=== PATIENT | male | born 1945 | race Caucasian/White ===

== ENCOUNTER 2018-03-03 08:07 | Inpatient (IN) ==
--- NOTE | 2018-03-03 07:37 | Discharge Summary ---
<Gareth Blount - Last Filed: 03/03/18 08:41> Orders not resulted at time of discharge: Pending orders 03/03/18 07:35 XR shoulder complete LT [XR] Routine H/H [Hemoglobin and Hematocrit] [HEME] Routine - Discharge Diagnosis (1) Lumbar spondylosis Priority: Secondary Status: Chronic Qualifiers: Spinal osteoarthritis complication: without myelopathy or radiculopathy Qualified Code(s): M47.816 - Spondylosis without myelopathy or radiculopathy, lumbar region (2) Rotator cuff arthropathy of left shoulder Priority: Primary Status: Chronic (3) Status post reverse total arthroplasty of left shoulder Priority: Primary Status: Acute (4) BPH (benign prostatic hyperplasia) Priority: Secondary Status: Chronic Qualifiers: Lower urinary tract symptom presence: unspecified whether lower urinary tract symptoms present Qualified Code(s): N40.0 - Benign prostatic hyperplasia without lower urinary tract symptoms (5) GERD (gastroesophageal reflux disease) Priority: Secondary Status: Chronic Qualifiers: Esophagitis presence: without esophagitis Qualified Code(s): K21.9 - Gastro-esophageal reflux disease without esophagitis (6) HTN (hypertension) Priority: Secondary Status: Chronic Qualifiers: Hypertension type: essential hypertension Qualified Code(s): I10 - Essential (primary) hypertension (7) Thyroid disease Priority: Secondary Status: Chronic - Hospital Course Hospital course: Mr. Poole is a 72 year old male - Time Spent with Patient Total time spent providing and/or coordinating discharge services: - Discharge Medications Home Medications: Labetalol HCl 400 mg PO BID 01/24/17 [History] Lisinopril [Zestril] 20 mg PO HS 01/24/17 [History] Pantoprazole Sodium 80 mg PO DAILY 01/24/17 [History] Potassium Chloride [K-Tab ER] 40 mg PO DAILY 01/24/17 [History] Tamsulosin [Flomax] 0.4 mg PO HS 01/24/17 [History] amLODIPine [Norvasc] 5 mg PO DAILY 01/24/17 [History] Fluticasone Propionate Nasal [Flonase] 2 spr NS DAILY PRN 03/03/18 [History] Gabapentin [Neurontin] 600 - 900 mg PO HS 03/03/18 [History] Montelukast [Singulair] 10 mg PO HS 03/03/18 [History] OxyCODONE Immed Rel [Roxicodone 5 MG] 5 mg PO Q6HR PRN 7 Days #28 tablet 03/03/18 [Rx] Allergies/Adverse Reactions: Allergy/AdvReac Type Severity Reaction Status Date / Time Iodinated Contrast- Oral and Allergy Severe Anaphylaxis Verified 02/08/18 18:23 IV Dye [Iodinated Contrast Media - IV Dye] Hydromorphone [From Dilaudid] Allergy Agitated Verified 02/08/18 18:23 NSAIDS (Non-Steroidal Allergy Nausea Verified 02/08/18 18:23 Anti-Inflamma piroxicam AdvReac Mild Gastrointestinal Verified 02/08/18 18:23 Upset Primary care physician: Ranjith Mclaughlin MD - Patient Status Disposition: Home, Self-Care Condition: Good - Discharge Instructions Instructions: Joint Replacement Surgery (DC) Follow Up With: Ranjith Mclaughlin MD [Primary Care Provider] - <Cherelle Mitchell L - Last Filed: 03/03/18 20:00> Orders not resulted at time of discharge: Pending orders 03/03/18 07:35 XR shoulder complete LT [XR] Routine H/H [Hemoglobin and Hematocrit] [HEME] Routine Date of Encounter: 03/03/18 Time of Encounter: 19:57 - Discharge Diagnosis (1) Status post reverse total arthroplasty of left shoulder Priority: Primary Status: Acute Comments: Opsite dressing, leave intact until first post-operative visit. Zipline in place, plan to remove at post-operative day #14-16. If dressing becomes >50% saturated, contact office, remove dressing and place appropriate dressing in its place. Do not allow for dressing to get wet. Shoulder Precautions x 6 weeks. Apply cold therapy wrap 3-6x/day for 20 minutes at a time. Encourage ambulation throughout the day. Use Incentive spirometer 10x/hour. Elevate affected extremity above heart as tolerated. NWB to affected upper extremity x 6 weeks. Will remove brace at first post-operative appointment. OK to remove during PT/OT and Home exercises. (2) Rotator cuff arthropathy of left shoulder Priority: Primary Status: Chronic (3) HTN (hypertension) Priority: Secondary Status: Chronic Qualifiers: Hypertension type: essential hypertension Qualified Code(s): I10 - Essential (primary) hypertension (4) BPH (benign prostatic hyperplasia) Priority: Secondary Status: Chronic Qualifiers: Lower urinary tract symptom presence: unspecified whether lower urinary tract symptoms present Qualified Code(s): N40.0 - Benign prostatic hyperplasia without lower urinary tract symptoms (5) GERD (gastroesophageal reflux disease) Priority: Secondary Status: Chronic Qualifiers: Esophagitis presence: without esophagitis Qualified Code(s): K21.9 - Gastro-esophageal reflux disease without esophagitis (6) Thyroid disease Priority: Secondary Status: Chronic - Hospital Course Hospital course: Mr. Poole is a 72 year old male, status post Left TSR-Reverse [place]. Patient had uneventful postoperative course. Stable for discharge. . A&O x 3 Afebrile, vital signs stable. Vital Signs Temp Pulse Resp BP Pulse Ox 03/03/18 15:30 97.5 F L 77 16 143/79 93 03/03/18 15:13 97.5 F L 77 17 143/79 93 03/03/18 14:31 80 16 130/70 93 03/03/18 13:45 76 16 92 03/03/18 13:23 97.5 F L 78 16 119/74 94 03/03/18 12:45 97.4 F L 68 17 146/80 94 03/03/18 12:21 97.0 F L 67 16 137/72 94 03/03/18 12:11 70 16 139/71 94 03/03/18 12:01 97.0 F L 67 16 133/74 97 03/03/18 11:51 68 16 136/74 98 03/03/18 11:41 71 20 134/75 97 03/03/18 11:31 97.0 F L 85 20 135/79 97 03/03/18 10:12 68 16 131/73 94 03/03/18 09:58 75 16 151/90 95 03/03/18 08:30 97.8 F 76 18 126/76 96 Intake and Output 03/03/18 03/03/18 03/03/18 07:59 15:59 23:59 Output Total 450 / 450 Balance -450 / -450 Output: Urine 350 / 350 Estimated Blood Loss 100 / 100 Other: Weight 92.533 kg Patient Weight 03/03/18 23:59 Weight 92.533 kg Labs reviewed. H/H - stable, asymptomatic Short CBC 03/03/18 Range/Units 12:04 Hgb 13.9 D (12.9-16.9) g/dL Hct 41.4 (37.5-50.1) % Pain control: adequate Participating in PT. All questions and concerns addressed. Educated on use of incentive spirometer. Encouraged ambulation and proper hydration. Patient educated on post-operative restrictions and post-operative care. Assessment and plan: Continue with postoperative care Discharge plan: Home , discharge today with outpatient - Time Spent with Patient Total time spent providing and/or coordinating discharge services: Date of admission: 03/03 Primary care physician: Ranjith Mclaughlin MD Anticipated date of discharge: 03/03/18 - Patient Status Functional capacity at discharge: independent ambulation Overall status at discharge: patient is progressing back to baseline - Diet and Activity Activity: as per physical therapy
[2018-03-03] MEDS ORDERED: CeFAZolin Syr 2,000MG/20 ML 2,000 MG/20 ML SYRINGE IVPB ONE (08:35)
--- NOTE | 2018-03-03 08:41 | History & Physical Report ---
Date of Encounter: 03/03/18 Time of Encounter: 08:41 24 Hour HP Update - Instructions Instructions: If the History and Physical is less than 30 days old and was completed prior to A.M. admission and or procedure and has NOT been updated on calendar day of procedure please complete this update prior to performing procedure. - Update Patient reports changes in Medical Condition: No Changes in examination, assessment, or condition: No Changes in Medication: No Preop tests/diagnostics Reviewed: Yes Surgery Remains Indicated: Yes Consent for Planned Operative Procedure(s) Verified: Yes - Pre-Operative Checklist Preoperative Checklist Indicated: No Prophylactic Antibiotic Ordered: Yes Is VTE Prophylaxis Indicated?: Yes
[2018-03-03] MEDS ORDERED: Ringers Solution, Lactated 1,000 ML IVC SCH ×2 (08:45→12:37)
[2018-03-03] MEDS ORDERED: *HR* Midazolam HCl 2 MG/2 ML VIAL ONE (08:56)
[2018-03-03] MEDS ORDERED: *HR* FentaNYL (PF) 100 MCG/2 ML VIAL ONE (08:56)
[2018-03-03] MEDS ORDERED: *HR* Propofol 200 MG/20 ML VIAL IVP ONE (08:56)
[2018-03-03] MEDS ORDERED: Famotidine 20 MG/2 ML VIAL IVP ONE (09:08)
[2018-03-03] MEDS ORDERED: Acetaminophen IV 1,000 MG/100 ML INFUS..BTL IVPB ONE (09:09)
[2018-03-03] MEDS ORDERED: *HR* FentaNYL (PF) 100 MCG/2 ML VIAL IVP PRN (09:10)
[2018-03-03] MEDS ORDERED: *HR* Promethazine 25 MG/ML VIAL IVP PRN (09:10)
[2018-03-03] MEDS ORDERED: *HR* OxyCODONE Immed Rel 5 MG TABLET PO PRN ×2 (09:10→12:37)
--- NOTE | 2018-03-03 09:41 | Anesthesia Evaluation PreOp ---
Date of Encounter: 03/03/18 Time of Encounter: 09:40 - Past History Planned Operation: Left Total Shoulder Replacement Cardiac History: HTN, Hyperlipidemia Pulmonary History: Denies Any Significant HX LIFE SCIENCE RESEARCH ASSISTANT History: Denies Any Significant HX Other Medical History: GERD, Other (BPH) Anesthesia History: No Prior Anesthetic Complications Alcohol Use: none Drug use: none Medications and Allergies Labetalol HCl 400 mg PO BID 01/24/17 [History] Lisinopril [Zestril] 20 mg PO HS 01/24/17 [History] Pantoprazole Sodium 80 mg PO DAILY 01/24/17 [History] Potassium Chloride [K-Tab ER] 40 mg PO DAILY 01/24/17 [History] Tamsulosin [Flomax] 0.4 mg PO HS 01/24/17 [History] amLODIPine [Norvasc] 5 mg PO DAILY 01/24/17 [History] Fluticasone Propionate Nasal [Flonase] 2 spr NS DAILY PRN 03/03/18 [History] Gabapentin [Neurontin] 600 - 900 mg PO HS 03/03/18 [History] Montelukast [Singulair] 10 mg PO HS 03/03/18 [History] OxyCODONE Immed Rel [Roxicodone 5 MG] 5 mg PO Q6HR PRN 7 Days #28 tablet 03/03/18 [Rx] Allergy/AdvReac Type Severity Reaction Status Date / Time Iodinated Contrast- Oral and Allergy Severe Anaphylaxis Verified 02/08/18 18:23 IV Dye [Iodinated Contrast Media - IV Dye] Hydromorphone [From Dilaudid] Allergy Agitated Verified 02/08/18 18:23 NSAIDS (Non-Steroidal Allergy Nausea Verified 02/08/18 18:23 Anti-Inflamma piroxicam AdvReac Mild Gastrointestinal Verified 02/08/18 18:23 Upset - Meds/Allergy Pre-op Review Medications Reviewed: Yes Allergies Reviewed: Yes Beta Blockers on Current Med List: No Anesthesia Results - Labs Laboratory Tests 11/24/14 01/16/17 02/27/18 14:12 08:18 11:25 Hgb Hct Plt Count PT 11.2 INR 1.1 PTT 25.5 L Sodium 140 Potassium 4.3 BUN 23 POC Creatinine 1.20 02/27/18 11:25 Hgb 15.6 Hct 46.9 Plt Count 152 PT INR PTT Sodium Potassium BUN POC Creatinine - Imaging EKG: report reviewed (SR) Anesthesia Exam O2 Sat Height 1.78 m Height 1.78 m Height 1.78 m Weight 92.533 kg Weight 92.533 kg Weight 92.533 kg O2 Sat by Pulse Oximetry 96 Vital Signs Temp Pulse Resp BP Pulse Ox 97.8 F 76 18 126/76 96 03/03/18 08:30 03/03/18 08:30 03/03/18 08:30 03/03/18 08:30 03/03/18 08:30 Height: 5'10 Weight: 204 lbs NPO (# of Hours): MN Pain Scale: 0 - HEENT Pupil (Motor): Pupils equal, EOMI Mallampati: II Teeth: Normal Oral Opening: Greater than 3 - LIFE SCIENCE RESEARCH ASSISTANT LOC: Oriented LIFE SCIENCE RESEARCH ASSISTANT Motor: Normal RUE, Normal LUE, Normal RLE, Normal LLE, Normal Face LIFE SCIENCE RESEARCH ASSISTANT Sensory: Normal: RUE, LUE, RLE, LLE, Face - Cardiac Rhythm: Regular Murmur: None JVD: No Carotid Bruit: No - Pulmonary Breath Sounds: bilateral Clear Respiratory Effort: Symmetrical Anesthesia Assess/Plan ASA Score: 2 Modified Alma Scale for Level of Consciousness: Cooperative, oriented, and tranquil Anesthetic Plan: General, Regional Monitoring Plan: Standard Monitors Recovery Plan: PACU (Discussed GA and RA, agrees to proceed)
[2018-03-03] MEDS ORDERED: Tetracaine/PF 20 MG/2 ML AMPUL ONE (09:42)
[2018-03-03] MEDS ORDERED: Ethanol\\Acetic Acid\\Na Ace\\Ben 1,000 ML IRRIG.SOLN IR ONE (09:42)
[2018-03-03] MEDS ORDERED: ROPIVACAINE HCL/PF 0.5% 30 ML VIAL ONE (09:42)
[2018-03-03] MEDS ORDERED: Bupivacaine/Clonidine Syringe 1 EACH SYRINGE ONE (10:11)
[2018-03-03] MEDS ORDERED: Dexamethasone 4 MG/ML VIAL ONE (10:57)
[2018-03-03] MEDS ORDERED: Lidocaine -MPF 2% 2 ML VIAL ONE (10:57)
[2018-03-03] MEDS ORDERED: EPHEDrine 50 MG/ML VIAL ONE (10:57)
[2018-03-03] MEDS ORDERED: Ondansetron 4 MG/2 ML VIAL ONE (10:57)
[2018-03-03] MEDS ORDERED: *HR* PHENYLEPHRINE 1,000 MCG/10 ML SYRINGE IVP ONE (11:04)
--- NOTE | 2018-03-03 11:07 | Orthopedic Operative Note ---
Date of procedure: 03/03/18 Pre-op diagnosis: Left shoulder cuff tear arthropathy Post-op diagnosis: same Procedure: Procedure: Total Shoulder Replacment Reverse, left Estimated blood loss: 100 cc Hardware: Metal and polyethylene replacement: Arthrex 28, +2 , 30 mm screw glenoid baseplate, 2 4.5 screws. 2 5.5 screw, 22+4 glenosphere, 12 apex humeral stem, poly insert 3 Exam Under anesthesia: Full motion no instability Procedural Notes: Grade 4 arthritic changes humeral head glenoid socket, tear supraspinatus tendon. Operative procedure: The patient was brought to the operating room and placed on the operating room table. After general anesthesia was administered the operative shoulder was examined. Findings were noted. The patient was placed in the modified beachchair position. All pressure points were padded appropriately. And the head was stabilized in the neutral position. The operative extremity was prepped and draped in the sterile surgical fashion. The patient received IV antibiotics prior to skin incision. A standard deltopectoral approach was made to the operative shoulder. Incision was made to the skin and subcutaneous tissue,hemo stasis was obtained with Bovie cautery. Using careful blunt dissection the cephalic vein was identified and mobilized medially. The deltopectoral interval was developed and the clavipectoral fascia was incised. The subscap was released off the lesser tuberosity and tagged with #2 FiberWire suture. The humerus was dislocated patient noted to have tear supraspinatus tendon, and the humeral cut was made along the anatomic neck. Patient noted to have grade 4 arthritic changes humeral head and glenoid socket. Anterior and posterior Bankart retractors were placed to expose the glenoid. The glenoid guide was seated and the centering hole was made. It was reamed with the appropriate reamer. The 28, +2, 30 mm screw, baseplate was seated and secured with (2) 4.5 screws and 2 5.5 screw. The baseplate was irrigated and dried and the 42+4 Glenosphere was seated and secured with the [place] taper. The [place] taper was tested and found to be secure the humerus was redislocated and prepared with the diaphyseal reamers, followed by a broaching process up to the appropriate size 12 apex in the patient's anatomic version. The metaphyseal reamer was then utilized. Trial reduction found the shoulder to be relocatable. Trial components were removed and 12 apex stem was impacted in place in the patient's anatomic version. Trial reduction found the shoulder to be relocatable and stable with the appropriate 3 [place]ma Trial component was removed and the real implant was seated and secured the shoulder was reduced. The shoulder had excellent motion and excellent stability and no evidence of dislocation. The deep tissue was irrigated with pulse irrigation. The PA close the shoulder. The deltopectoral interval was closed with a running #1 PDS suture, subcutaneous tissue was irrigated and closed with 0 PDS suture, the skin was closed with Dermabond. The patient was placed in a sterile dressing, abduction brace and extubated. The patient was then transferred to the recovery room in stable condition. Anesthesia: GETA Surgeon: Gareth Blount Was there an contact lens assistant present: No Estimated blood loss (cc): 100 Condition: stable Disposition: PACU
--- NOTE | 2018-03-03 11:17 | Anesthesia Procedures ---
Date of Encounter: 03/03/18 Time of Encounter: 11:15 Procedures: Anesthesia - Nerve Block Procedure Date: 03/03/18 Time: 11:15 Allergies/Adv Reactions: iodine Pre-op Diagnosis: arthritis l shoulder Surgical Procedure: Ltot shoulder Checklist: Correct Patient Identifier Correct side: Left Blood Thinner: No Monitor Applied: EKG, BP, Pulse Oximetry Supplemental Oxygen via Nasal Cannula (L/min): 3 Sedation: Versed (mg): 2 Indication: Post Op Analgesia Pre-op Neuro Deficits: No Block Type: Supraclavicular Catheter placed: No Sterile Technique: Yes Ultrasound used: Yes Anatomy identified: Yes Visual spread of Local: Yes Neuro Stimulation: No Blood on Needle Aspiration: No Smooth Injection of Local: Yes Pain with Injection of Local: No Prep: Chlorhexadine Needle: 22 x 50 mm Stimuplex Local: 0.25% Bupivicaine w/Clonidine 20 mcg/cc, Ropivacaine (0.5 ) Volume (cc): 30 20 Number of Attempts: 1 Complications: None/effective block Vitals: Vital Signs/O2 Sat, Most Current Temp Pulse Resp BP Pulse Ox 97.8 F 68 16 131/73 94 03/03/18 08:30 03/03/18 10:12 03/03/18 10:12 03/03/18 10:12 03/03/18 10:12 Comments: aseptic, arabella well, VSS, effective
[2018-03-03 12:11] LABS: Hematocrit 41.4 % (37.5-50.1)
[2018-03-03 12:20] LABS: Hemoglobin 13.9 g/dL (12.9-16.9)
--- NOTE | 2018-03-03 12:32 | Anesthesia Evaluation Post Op ---
Date of Encounter: 03/03/18 Time of Encounter: 12:30 - Vital Signs Vital Signs: Vital Signs/O2 Sat/Glucose, Most Current Temp Pulse Resp BP Pulse Ox 03/03/18 12:21 97.0 F L 67 16 137/72 94 03/03/18 12:11 70 16 139/71 94 03/03/18 12:01 97.0 F L 67 16 133/74 97 03/03/18 11:51 68 16 136/74 98 03/03/18 11:41 71 20 134/75 97 03/03/18 11:31 97.0 F L 85 20 135/79 97 03/03/18 10:12 68 16 131/73 94 03/03/18 09:58 75 16 151/90 95 - Lungs Lungs: Clear Ascult./Percussion - Airway Airway: Non-obstructed - Cardiovascular Regular Rate - Mental Status Mental Status: Alert & Oriented, Answers Appropriately - Pain Pain Scale: 0 - Nausea Vomiting Nausea Vomiting: Not Present - Hydration Hydration: Ice chips - Discharge PostOp Status: Transfer Patient to floor
[2018-03-03] MEDS ORDERED: Naloxone 0.4 MG/ML INJ IVP PRN (12:37)
[2018-03-03] MEDS ORDERED: Temazepam 15 MG CAPSULE PO PRN (12:37)
[2018-03-03] MEDS ORDERED: Sennosides 8.6 MG TABLET PO PRN (12:37)
[2018-03-03] MEDS ORDERED: MOM Conc 10 ML UD.LIQ PO PRN (12:37)
[2018-03-03] MEDS ORDERED: Fluticasone Propionate Nasal 50 MCG/SPRAY BOTTLE NS PRN ×2 (12:37→14:00)
[2018-03-03] MEDS ORDERED: traMADol 50 MG TABLET PO PRN (12:37)
[2018-03-03] MEDS ORDERED: *HR* OxyCODONE/APAP 5/325 TABLET PO PRN (12:37)
[2018-03-03] MEDS ORDERED: Ondansetron 4 MG/2 ML VIAL IVP PRN (12:37)
[2018-03-03 15:15] VITALS: BP 143/79
[2018-03-03] MEDS ORDERED: *HR* Enoxaparin 30 MG/0.3 ML SYRINGE SQ SCH ×3 (18:00)
[2018-03-03] MEDS ORDERED: Gabapentin 400 MG CAPSULE PO SCH (21:00)
[2018-03-03] MEDS ORDERED: Lisinopril 20 MG TABLET PO SCH (21:00)
[2018-03-04] MEDS ORDERED: amLODIPine 5 MG TABLET PO SCH (09:00)
== END 2018-03-03 17:50 | disposition home or self-care (01) | DRG 483 ==
LOC: SAMDAY 08:07 → 3NENU 12:54
PROVIDERS: ADMIT Orthopaedic Surgery; ATTEND Orthopaedic Surgery